=== PATIENT | male | born 1995 ===

== ENCOUNTER 2017-04-15 09:15 | Outpatient (CLI) | payer OTHER ==
[~2017-04-15] VITALS: Ht 152.4 cm; Wt 75.3 kg
== END 2017-04-15 09:30 | disposition home or self-care (01) ==
LOC: OFIC 805 09:15
DX: J31.2 Chronic pharyngitis (principal); J32.8 Other chronic sinusitis; R49.1 Aphonia; R49.0 Dysphonia